=== PATIENT | female | born 1955 | race American Indian/Alaskan Native ===

== ENCOUNTER 2023-02-10 21:27 | Emergency (ER) | payer BC ==
[2023-02-10] MEDS ORDERED: Sodium Chloride 0.9% 10 ML Syringe FLUSH PRN (21:38)
[2023-02-10 22:01] LABS: BASOPHILS ABSOLUTE AUTO 0.05 K/uL (0.00-0.10); BASOPHILS PERCENT AUTO 0.5 % (0.1-1.3); EOSINOPHILS ABSOLUTE AUTO 0.15 K/uL (0.00-0.40); EOSINOPHILS PERCENT AUTO 1.5 % (0.0-5.4); HEMATOCRIT 35.4 % (34.3-46.0); HEMOGLOBIN 11.8 g/dL (11.2-15.5); IMMATURE GRAN ABSOLUTE AUTO 0.23 K/uL (0.00-0.23); IMMATURE GRAN PERCENT AUTO 2.3 % (0.0-0.7); LYMPHOCYTES ABSOLUTE AUTO 2.24 K/uL (0.8-3.3); LYMPHOCYTES PERCENT AUTO 22.2 % (11.4-47.7); MEAN CORPUSCULAR HEMOGLOBIN 28.8 pg (31.6-35.5); MEAN CORPUSCULAR HGB CONC 33.3 g/dL (31.6-35.5); MEAN CORPUSCULAR VOLUME 86.3 fL (81.4-99.0); MONOCYTES ABSOLUTE AUTO 0.64 K/uL (0.20-0.90); MONOCYTES PERCENT AUTO 6.3 % (3.3-12.6); NEUTROPHILS PERCENT AUTO 67.2 % (40.0-78.1); PLATELET COUNT,PLT 415 K/uL (130-375); WHITE BLOOD CELL COUNT,WBC 10.1 K/uL (3.2-11.0)
[2023-02-10 22:19] LABS: ANION GAP 15.8 mmol/L (5.0-14.0); CALCIUM 9.2 mg/dL (8.5-10.1); CREATININE 0.7 mg/dL (0.6-1.0); EST CRCL DRUG DOSING (CG) 65.4 mL/min; POTASSIUM,K 3.8 mmol/L (3.6-5.2)
[2023-02-10 22:24] LABS: PROTHROMBIN TIME 9.8 sec (9.2-10.6); PTT,PARTIAL THROMBOPLSTIN TIME 31.2 sec (21.8-27.3)
[2023-02-10] MEDS ORDERED: Sodium Chloride 0.9% 100 ML IV STA (23:15)
[2023-02-10] MEDS ORDERED: Iopamidol 755 Mg/ML 100 ML Bottle IV STA (23:15)
[2023-02-10] MEDS ORDERED: Sodium Chloride 0.9% 10 ML Syringe FLUSH STA (23:16)
== END 2023-02-11 00:55 | disposition home or self-care (01) ==
LOC: JP.ED 21:27
DX: J18.9 Pneumonia, unspecified organism (principal); Z79.82 Long term (current) use of aspirin
CPT/HCPCS: 36415; 71045; 71275; 80048; 84484; 85025; 85379; 85610; 85730; 93005; 99285; J3490; Q9967

== ENCOUNTER 2023-11-13 22:29 | Emergency (ER) | payer BC | END 2023-11-13 23:55 | disposition home or self-care (01) | LOC: JP.ED 22:29 | DX: S52.571A Other intraarticular fracture of lower end of right radius, initial encounter for closed fracture (principal); E11.9 Type 2 diabetes mellitus without complications; E03.9 Hypothyroidism, unspecified; Z86.16 Personal history of COVID-19; Z79.84 Long term (current) use of oral hypoglycemic drugs; Z79.82 Long term (current) use of aspirin; Z79.899 Other long term (current) drug therapy; W01.0XXA Fall on same level from slipping, tripping and stumbling without subsequent striking against object, initial encounter; Y93.01 Activity, walking, marching and hiking | CPT/HCPCS: 29125; 73110-26-RT; 73110-RT; 99283; 99283-25 ==

== ENCOUNTER 2023-11-21 09:43 | Day surgery (SDC) | payer BC, OTHER ==
[~2023-11-21 09:43] MED LIST: Dexamethasone 4 MG/ML SDV ONE; Ondansetron 4 MG/2 ML SDV ONE; Propofol 200 MG/20 ML SDV ONE; fentaNYL 250 MCG/5 ML SDV ONE
[2023-11-21 10:04] LABS: HEMATOCRIT 37.2 % (34.3-46.0); HEMOGLOBIN 12.2 g/dL (11.2-15.5); MEAN CORPUSCULAR HEMOGLOBIN 28.7 pg (31.6-35.5); MEAN CORPUSCULAR HGB CONC 32.8 g/dL (31.6-35.5); MEAN CORPUSCULAR VOLUME 87.5 fL (81.4-99.0); RED BLOOD CELL COUNT 4.25 M/uL (3.77-5.24); WHITE BLOOD CELL COUNT,WBC 5.6 K/uL (3.2-11.0)
[2023-11-21 10:19] LABS: BLOOD UREA NITROGEN,BUN 13 mg/dL (7-18); CALCIUM 9.5 mg/dL (8.5-10.1); CARBON DIOXIDE,CO2 29 mmol/L (21-32); CHLORIDE,CL 101 mmol/L (100-108); CREATININE 0.8 mg/dL (0.6-1.0); ESTIMATED GFR 81 mL/min (>60); GLUCOSE RANDOM 110 mg/dL (74-106); POTASSIUM,K 3.6 mmol/L (3.6-5.2); SODIUM,NA 139 mmol/L (140-148)
[2023-11-21 10:27] LABS: ANION GAP 12.6 mmol/L (5.0-14.0)
[2023-11-21] MEDS: Nozin Nasal Sanitizer NASBOTH ONE (10:29)
[2023-11-21] MEDS: Lactated Ringers 1,000 ML IV SCH (10:43)
[2023-11-21] MEDS ORDERED: Midazolam 1 MG/ML 2 ML SDV ONE (12:53)
[2023-11-21] MEDS: ceFAZolin 2 GM in Premix Bag 1 BAG IV ONE (13:16)
[2023-11-21] MEDS: Bupivacaine 0.5% 30 ML SDV ONE (13:22)
[2023-11-21] MEDS: Acetaminophen/HYDROcodone 325-5 MG Tab PO ONE (15:48)
[2023-11-21] MEDS: Ondansetron 4 MG/2 ML SDV IVPUSH ONE (15:50)
[2023-11-21] MEDS ORDERED: droPERidol 5 MG/2 ML SDV ONE (16:29)
== END 2023-11-21 17:34 | disposition home or self-care (01) ==
LOC: JP.SDS 09:43
PROVIDERS: ATTEND Specialist
DX: S52.571A Other intraarticular fracture of lower end of right radius, initial encounter for closed fracture (principal); E11.9 Type 2 diabetes mellitus without complications; I10 Essential (primary) hypertension; E03.9 Hypothyroidism, unspecified; E78.5 Hyperlipidemia, unspecified; K21.9 Gastro-esophageal reflux disease without esophagitis; X58.XXXA Exposure to other specified factors, initial encounter
CPT/HCPCS: 25608; 36415; 76000; 80048; 85027; 93005; A9270; C1713; J0665; J0690; J1100; J1790; J2250; J2405; J2704; J3010; J7120; 93010